=== PATIENT | female | born 1995 | race Caucasian/White ===

== ENCOUNTER 2016-10-26 12:06 | Emergency (ER) | payer MEDICAID, OTHER ==
[~2016-10-26] VITALS: Ht 170.2 cm; Wt 84.6 kg
[2016-10-26 12:32] VITALS: BP 115/78; PULSE 88; RESP 16; TEMP 99.2; O2SAT 97
[2016-10-26] MEDS ORDERED: SODIUM CHLOR 0.9% 1000 ML INJ 1,000 ML IV SCH (14:07)
[2016-10-26] MEDS ORDERED: SODIUM CHLORIDE 0.9% FLUSH 5 ML FLUSH IVF PRN (14:15)
[2016-10-26] MEDS ORDERED: PANTOPRAZOLE SODIUM 40 MG VIAL IVP ONE (14:15)
[2016-10-26] MEDS ORDERED: ONDANSETRON HCL 4 MG/2 ML VIAL IVP ONE (14:15)
--- NOTE | 2016-10-26 14:17 | PD ---
HPI Chief Complaint: GI Complaint Time Seen by Provider: 13:54 Travel History International Travel<30 days: No Contact w/Intl Traveler<30days: No Traveled to known affect area: No History of Present Illness HPI Patient is a 21-year-old female who presents to emergency room with complaints of abdominal pain. Patient reports that for the past 8 months, she wakes up in the morning with nausea, which that she has complete resolution her symptoms after she has her breakfast in the morning. Patient reports that she is also been feeling constipated, reports that she has been having increased difficulty with having normal bowel movements, is that this has been ongoing for the past 6 months. Patient also reports that for the past week, she been having increased pain to epigastrium to left upper abdomen. Patient reports that she feels nauseous with her symptoms, denies vomiting. Patient reports no fevers or chills. Patient reports that she tried cutting out hot sauces from her diet as she used to carry around a bottle of hot sauce - reports "its not helping." Patient with no fevers or chills, no recent travels or trips. Patient presents to emergency room for her evaluation of her chronic nausea 8 months as well as abdominal pain for the past week. Patient reports that she does not think she is , denies dysuria, urinary urgency or frequency. PFSH Past Medical History ADHD: No Anxiety: Yes Cancer: No Cardiovascular Problems: No Diabetes: No Diminished Hearing: No Psychiatric: Yes (PHSYCOSIS) Immunizations Current: Yes (UTD) Migraines: Yes Seizures: No Thyroid Disease: Yes (PT STATES "MY THYROID LEVEL WAS A LITTLE ELEVATED AT THE [facility]") Ulcer: No Tetanus Vaccination: < 5 Years Influenza Vaccination: No ?: Not LMP: 10/04/16 : 0 Past Surgical History Tonsillectomy: Yes Other Surgery: Yes (TONSILLECTOMY) Social History Alcohol Use: No Tobacco Use: No Substance Use: No Allergies-Medications (Allergen,Severity, Reaction): Coded Allergies: No Known Allergies (Verified , 10/26/16) Reported Meds & Prescriptions Reported Meds & Active Scripts Active No Active Prescriptions or Reported Medications Review of Systems General / Constitutional: No: Fever Eyes: No: Visual changes HENT: No: Headaches Cardiovascular: No: Chest Pain or Discomfort Respiratory: No: Shortness of Breath Gastrointestinal: Positive: Nausea, Abdominal Pain, Constipation, No: Vomiting , Diarrhea Genitourinary: No: Dysuria Musculoskeletal: No: Pain Skin: No Rash Neurologic: No: Weakness Psychiatric: No: Depression Endocrine: No: Polydipsia Hematologic/Lymphatic: No: Easy Bruising Physical Exam Narrative GENERAL: No acute distress, nontoxic SKIN: Warm and dry. HEAD: Atraumatic. Normocephalic. EYES: Pupils equal and round. No scleral icterus. No injection or drainage. ENT: No nasal bleeding or discharge. Mucous membranes pink and moist. NECK: Trachea midline. No JVD. CARDIOVASCULAR: Regular rate and rhythm. No murmur appreciated. RESPIRATORY: No accessory muscle use. Clear to auscultation. Breath sounds equal bilaterally. GASTROINTESTINAL: Abdomen soft, patient with increased tenderness to the epigastrium and left upper abdomen to left mid abdomen MUSCULOSKELETAL: No obvious deformities. No clubbing. No cyanosis. No edema. NEUROLOGICAL: Awake and alert. No obvious cranial nerve deficits. Motor grossly within normal limits. Normal speech. PSYCHIATRIC: Appropriate mood and affect; insight and judgment normal. Data Data Last Documented VS Vital Signs Date Time Temp Pulse Resp B/P Pulse Ox O2 Delivery O2 Flow Rate FiO2 10/26/16 12:32 99.2 88 16 115/78 97 Orders Complete Blood Count With Diff (10/26/16 14:07) Comprehensive Metabolic Panel (10/26/16 14:07) Lipase (10/26/16 14:07) Urinalysis - C+S If Indicated (10/26/16 14:07) Ct Abd/Pel W/O Iv Contrast (10/26/16 14:07) Ondansetron Inj (Zofran Inj) (10/26/16 14:15) Pantoprazole Inj (Protonix Inj) (10/26/16 14:15) Sodium Chlor 0.9% 1000 Ml Inj (Ns 1000 M (10/26/16 14:07) Sodium Chloride 0.9% Flush (Ns Flush) (10/26/16 14:15) Ed Urine Pregnancytest Poc (10/26/16 14:07) Labs Laboratory Tests Test 10/26/16 10/26/16 14:10 14:30 Urine Collection Type CLEAN CATCH Urine Color YELLOW Urine Turbidity CLEAR Urine pH 5.5 Urine Specific Clint 1.018 Urine Protein NEG mg/dL Urine Glucose (UA) NEG mg/dL Urine Ketones NEG mg/dL Urine Occult Blood TRACE Urine Nitrite NEG Urine Bilirubin NEG Urine Leukocyte Esterase NEG Urine RBC 0-3 /hpf Urine Squamous Epithelial 6-8 /hpf Cells Urine Bacteria FEW /hpf Microscopic Urinalysis Comment CULT NOT INDICATED Urine Collection Time 14:10 White Blood Count 10.4 TH/MM3 Red Blood Count 5.08 MIL/MM3 Hemoglobin 15.0 GM/DL Hematocrit 45.5 % Mean Corpuscular Volume 89.5 FL Mean Corpuscular Hemoglobin 29.6 PG Mean Corpuscular Hemoglobin 33.1 % Concent Red Cell Distribution Width 12.7 % Platelet Count 217 TH/MM3 Mean Platelet Volume 9.6 FL Neutrophils (%) (Auto) 72.6 % Lymphocytes (%) (Auto) 18.5 % Monocytes (%) (Auto) 7.4 % Eosinophils (%) (Auto) 1.3 % Basophils (%) (Auto) 0.2 % Neutrophils # (Auto) 7.6 TH/MM3 Lymphocytes # (Auto) 1.9 TH/MM3 Monocytes # (Auto) 0.8 TH/MM3 Eosinophils # (Auto) 0.1 TH/MM3 Basophils # (Auto) 0.0 TH/MM3 CBC Comment DIFF FINAL Differential Comment Sodium Level 142 MEQ/L Potassium Level 3.7 MEQ/L Chloride Level 108 MEQ/L Carbon Dioxide Level 26.0 MEQ/L Anion Gap 8 MEQ/L Blood Urea Nitrogen 12 MG/DL Creatinine 0.59 MG/DL Estimat Glomerular Filtration 130 ML/MIN Rate Random Glucose 77 MG/DL Calcium Level 9.2 MG/DL Total Bilirubin 0.5 MG/DL Aspartate Amino Transf 14 U/L (AST/SGOT) Alanine Aminotransferase 26 U/L (ALT/SGPT) Alkaline Phosphatase 73 U/L Total Protein 7.5 GM/DL Albumin 4.0 GM/DL Lipase 109 U/L [facility] Medical Decision Making Medical Screen Exam Complete: Yes Emergency Medical Condition: Yes Interpretation(s) Vital Signs Date Time Temp Pulse Resp B/P Pulse Ox O2 Delivery O2 Flow Rate FiO2 10/26/16 12:32 99.2 88 16 115/78 97 Differential Diagnosis GERD, , gastritis, gastric enteritis, gastric ulcer, electrolyte abnormality Narrative Course Patient is a 21-year-old female who presents to emergency room with complaints of abdominal pain, nausea and constipation. Patient reports that she has been having abdominal problems for the past 8 months, reports that she has been having increased nausea every time she wakes up in the morning. Patient reports resolution of symptoms after she has her morning breakfast. Reports that she also has been feeling very constipated, reports that she is if she cannot have a normal bowel movement which has been ongoing for the past 6 months. Reports that about a week ago, she tried to have a bowel movement and was straining to have a bowel movement, reports that since then, she has had severe abdominal pain. Patient has not follow-up with primary care doctor or GI doctor she does not have insurance at this time. Patient here for evaluation. Overall, patient nontoxic in appearance. Plan to obtain labs as well as CAT scan the abdomen and pelvis. Reviewed with patient that she ultimately will need to go to a auditor/quality for evaluation of her symptoms as she will most likely need an outpatient EGD. Patient understands this and is agreeable to plan of care. cbc: wnl bmp: wnl ua: trace blood, neg leuk esteraste, neg nitrite urine preg neg ct abd/pelvis: Last Impressions Abdomen/Pelvis CT 10/26/16 1407 Signed Impressions: Service Date/Time: Wednesday, October 26, 2016 14:47 - CONCLUSION: Essentially normal noncontrast CT of the abdomen and pelvis. There is a possibility of right lower quadrant mesenteric adenitis in the proper clinical setting. Normal appendix. Yanick Josue MD And reviewed all labs and all studies as well as ALL FINDINGS WITH PATIENT in DETAIL. Signs and symptoms of when to return to emergency room was reviewed with patient. Patient understands need to follow-up with a auditor/quality as soon as possible. Patient will follow-up with her primary care doctor as well. Diagnosis Primary Impression: Abdominal pain Qualified Code: R10.84 - Generalized abdominal pain Additional Impressions: Nausea & vomiting Qualified Code: R11.2 - Nausea and vomiting, intractability of vomiting not specified, unspecified vomiting type Constipation Qualified Code: K59.00 - Constipation, unspecified constipation type Referrals: Devika Milton MD Patient Instructions: General Instructions Additional Instructions: Please provide patient with a copy of her lab work and studies at discharge Please follow-up with a auditor/quality as soon as possible Return to emergency room as needed or if symptoms return or worsen Please follow-up with a primary care doctor Scripts Polyethylene Glycol 3350 Powder (Miralax Powder)17 Gm Powd17 Gm PO DAILY #1 BOTTLE Ref 0 Mix and dissolve one measuring cap-ful (17 grams) in water or juice. Prov:Carley Ulloa DO 10/26/16 Ondansetron Odt (Zofran Odt)4 Mg Tab4 Mg SL Q6HR PRN (Nausea/Vomiting) #30 TAB Ref 0 Prov:Carley Ulloa DO 10/26/16 Disposition: 01 DISCHARGE HOME Condition: Stable Carley Ulloa DO Oct 26, 2016 14:17
[2016-10-26 14:20] LABS: BLOOD, URINE TRACE (NEG); GLUCOSE,URINE NEG (NEG); KETONE, URINE NEG (NEG); NITRITE,URINE NEG (NEG); PH, URINE 5.5 (5.0-8.5)
[2016-10-26 14:29] LABS: METHOD OF COLLECTION CLEAN CATCH; RBC, URINE 0-3 /hpf (0-3); URINE COLOR YELLOW (YELLW/STRAW)
[2016-10-26 14:30] LABS: BACTERIA, URINE FEW /hpf; COMMENT (UR) CULT NOT INDICATED; CULTURE IF INDICATED CULT NOT INDICATED
[2016-10-26 14:56] LABS: AUTOMATED NEUTROPHIL # 7.6 TH/MM3 (1.8-7.7); BASOPHIL % 0.2 % (0.0-2.0); EOSINOPHIL # 0.1 TH/MM3 (0-0.4); EOSINOPHIL % 1.3 % (0.0-4.0); HEMATOCRIT 45.5 % (35.0-46.0); HEMO FLAGS DIFF FINAL; LYMPH % 18.5 % (9.0-44.0); LYMPHOCYTE # 1.9 TH/MM3 (1.0-4.8); MEAN CELL VOLUME 89.5 FL (80.0-100.0); MEAN CORPUSCULAR HEMOGLOBIN 29.6 PG (27.0-34.0); MEAN CORPUSCULAR HGB CONC 33.1 % (32.0-36.0); MONO % 7.4 % (0.0-8.0); NEUT % 72.6 % (16.0-70.0); PLATELET COUNT 217 TH/MM3 (150-450); RED BLOOD COUNT 5.08 MIL/MM3 (4.00-5.30); RED CELL DISTRIBUTION WIDTH 12.7 % (11.6-17.2); WHITE BLOOD COUNT 10.4 TH/MM3 (4.0-11.0)
[2016-10-26 14:58] LABS: CHLORIDE 108 MEQ/L (98-107); POTASSIUM 3.7 MEQ/L (3.5-5.1); SODIUM (NA) 142 MEQ/L (136-145)
[2016-10-26 15:02] LABS: ANION GAP 8 MEQ/L (5-15); BLOOD UREA NITROGEN 12 MG/DL (7-18)
[2016-10-26 15:04] LABS: ALT (GPT) 26 U/L (9-42)
--- NOTE | 2016-10-26 15:04 | RADHPO ---
EXAM DATE/TIME: 10/26/2016 14:47 [facility] COMPARISON: Report only CT ABDOMEN & PELVIS W/O CONTRAST, April 07, 2011, 18:51. INDICATIONS : Mid abdominal pain with nausea and constipation. ORAL CONTRAST: No oral contrast ingested. RADIATION DOSE: 14.57 CTDIvol (mGy) MEDICAL HISTORY : None SURGICAL HISTORY : Tonsillectomy. ENCOUNTER: Initial ACUITY: 4 - 6 days PAIN SCALE: 4/10 LOCATION: abdomen TECHNIQUE: Volumetric scanning of the abdomen and pelvis was performed. Using automated exposure control and ad justment of the mA and/or kV according to patient size, radiation dose was kept as low as reasonably achievable to obtain optimal diagnostic quality images. FINDINGS: LOWER LUNGS: The visualized lower lungs are clear. LIVER: Homogeneous density without lesion. There is no dilation of the biliary tree. No calcified gallston es. SPLEEN: Upper limits of normal size, roughly 12.5 cm craniocaudal. PANCREAS: Within normal limits. KIDNEYS: Normal in size and shape. There is no mass, stone, or hydronephrosis. ADRENAL GLANDS: Within normal limits. VASCULAR: There is no aortic aneurysm. BOWEL/MESENTERY: The stomach, small bowel, and colon demonstrate no acute abnormality. There is no free intraperitone al air or fluid. A few right lower quadrant mesenteric lymph nodes are seen measuring up to 11 mm in size. The appendix is well-visualized, normal. ABDOMINAL WALL: Within normal limits. RETROPERITONEUM: There is no lymphadenopathy. BLADDER: No wall thickening or mass. REPRODUCTIVE: Within normal limits. INGUINAL: There is no lymphadenopathy or hernia. MUSCULOSKELETAL: Within normal limits for patient age. CONCLUSION: Essentially normal noncontrast CT of the abdomen and pelvis. There is a possibility of right lower qu adrant mesenteric adenitis in the proper clinical setting. Normal appendix. Yanick Josue MD on October 26, 2016 at 15:00 Board Certified Radiologist. This report was verified electronically.
[2016-10-26 15:05] LABS: AST (GOT) 14 U/L (16-38); GLOMERULAR FILTRATION RATE 130 ML/MIN (>89)
[2016-10-26 15:06] LABS: TOTAL BILIRUBIN ADULT 0.5 MG/DL (0.2-1.0)
[2016-10-26 15:08] LABS: ALKALINE PHOSPHATASE 73 U/L (45-117)
[2016-10-26] MEDS ORDERED: ZOFR4TAB3 SL (15:15)
[2016-10-26] MEDS ORDERED: MIRA33504 PO (15:15)
[2016-10-26 15:29] VITALS: BP 109/60
== END 2016-10-26 15:33 | disposition home or self-care (01) ==
LOC: PHED 12:06 → PHEFT 15:33
DX: R10.84 Generalized abdominal pain (principal); R11.2 Nausea with vomiting, unspecified; K59.00 Constipation, unspecified; E07.9 Disorder of thyroid, unspecified
CPT/HCPCS: 74176; 80053; 81001; 83690; 84703; 85025; 96361; 96374; 96375; 99284; C9113; J2405; J7030